=== PATIENT | female | born 1950 | race Hispanic/Latino ===

== ENCOUNTER 2017-07-17 10:25 | Outpatient (CLI) | payer MEDICARE, OTHER ==
--- NOTE | 2017-07-18 15:31 | Magnetic Resonance Report ---
BILATERAL BREAST MRI WITHOUT AND WITH CONTRAST: 07/17/17 10:25:00 CLINICAL: High risk for breast cancer and history of a right palpable breast lump at 12 o'clock. COMPARISON:02/10/16. TECHNIQUE: Axial 1.0-mm T1 without, axial high resolution 2.0-mm T2 and axial 1.0-mm dynamic Vibrant high-resolution postcontrast T1 fat saturation sequences on a 1.5 Roseanne magnet. The examination was performed with an 8 channel dedicated [place] breast coil. Post processing with CAD and subtraction was performed on an [employer] workstation. 15.0 cc of Multihance was injected without incident for the contrast portion of the exam. Consent was obtained prior to the administration of the contrast. FINDINGS: Right: Minimal background parenchymal enhancement. No mass or suspicious enhancement. No suspicious lymph nodes. Left: Minimal background parenchymal enhancement. No mass or suspicious enhancement. No suspicious lymph nodes. IMPRESSION: Normal study. BI-RADS 1 - - Negative
== END 2017-07-17 10:26 | disposition home or self-care (01) ==
LOC: SPVIMAG 10:25
PROVIDERS: ATTEND Surgery
DX: Z80.3 Family history of malignant neoplasm of breast (principal)
CPT/HCPCS: 0159T; A9577; C8908; 77059

== ENCOUNTER 2020-12-15 14:47 | Outpatient (CLI) | payer MEDICARE, BC ==
--- NOTE | 2020-12-15 17:41 | Mammography Report ---
DIGITAL DIAGNOSTIC MAMMOGRAM WITH CAD , 12/15/2020 CLINICAL INFORMATION / INDICATION: Right breast lump. TECHNIQUE: Digital bilateral mammographic imaging was performed. Spot compression views were obtaine d. This examination was interpreted with the benefit of Computer-aided Detection analysis. COMPARISON: 11/15/2017 through 11/25/2019. FINDINGS: Breast Density: There are scattered areas of fibroglandular density. No dominant mass, suspicious calcifications or architectural distortion in either breast. No abnormality is seen on spot compression views of the palpable abnormality in the right breast. IMPRESSION: No mammographic evidence of malignancy. Right breast ultrasound is recommended to evaluat e the patient's lump. Follow up recommendation: Ultrasound BI-RADS Category 0: Incomplete. Needs additional imaging evaluation and/or prior mammograms for kurt knight. A "normal" or negative report should not discourage follow up or biopsy of a clinically significant f inding. A written summary of these findings will be mailed to the patient. The patient will be entered into a mammography reporting system which will generate a reminder letter for the patient's next appointmen t at the appropriate interval. According to the [employer], yearly mammograms are recommended starting at age 40 and continuing as long as a woman is in good health. Breast MRI is recommended for women with an cas roximately 20-25% or greater lifetime risk of breast cancer, including women with a strong family his tory of breast or ovarian cancer and women who have been treated for Hodgkin's disease. Signer Name: Kali Sifuentes MD Signed: 12/15/2020 5:37 PM Workstation Name: [id number]
== END 2020-12-15 14:48 | disposition home or self-care (01) ==
LOC: SPVWC 14:47
PROVIDERS: ATTEND Surgery
DX: R92.8 Other abnormal and inconclusive findings on diagnostic imaging of breast (principal)
CPT/HCPCS: 77066

== ENCOUNTER 2021-01-05 13:37 | Outpatient (CLI) | payer MEDICARE ==
--- NOTE | 2021-01-05 14:39 | Ultrasound Report ---
ULTRASOUND BREAST RIGHT LIMITED, 01/05/2021 CLINICAL INFORMATION / INDICATION: Right breast lump. TECHNIQUE: Targeted ultrasound evaluation was performed of the area of interest. COMPARISON: Bilateral diagnostic mammogram 12/15/20. FINDINGS: There is no evidence of a mass, posterior shadowing, distortion or other abnormality. IMPRESSION: No sonographic evidence of malignancy. Follow up recommendation: Routine yearly BI-RADS Category 1: Negative. A normal or "negative" report should not preclude biopsy or follow-up of a clinically suspicious find ing. Signer Name: Kali Sifuentes MD Signed: 01/05/2021 2:34 PM Workstation Name: [id number]
== END 2021-01-05 13:38 | disposition home or self-care (01) ==
LOC: SPVWC 13:37
PROVIDERS: ATTEND Surgery
DX: R92.8 Other abnormal and inconclusive findings on diagnostic imaging of breast (principal)

== ENCOUNTER 2021-03-23 13:39 | Outpatient (CLI) | payer MEDICARE, BC ==
--- NOTE | 2021-03-23 15:17 | Magnetic Resonance Report ---
Bilateral breast MR without and with contrast. History: Patient at high risk for breast malignancy based upon family history. Patient reports a righ t breast 3:00 palpable finding. Comparison: 01/05/2021, 11/02/2018. Technique: Multiplanar multisequence MR images of the breast were obtained before and after the intra venous administration of 14 ml of Clariscan contrast agent. Post processing analysis and review was p erformed on a separate computer workstation. Findings: Breast composition is scattered fibroglandular. There is minimal background parenchymal enhancement w ithin both breasts. No discrete enhancing mass, dominant focus, or other abnormal enhancement is identified within either breast. Specifically, no suspicious findings are identified in the right breast at the 3:00 position (site of reported palpable finding). No abnormal axillary or internal mammary lymph nodes. Impression: No evidence of breast malignancy. No MRI finding to explain reported right breast 3:00 palpable findi ng. BIRADS 1: Negative. A normal MRI does not exclude the presence of some forms of breast malignancy as literature reports s uggest that some forms of ductal carcinoma in situ or lobular carcinoma, particularly, may not be det ected on MRI. The sensitivity and specificity of MRI for cancers under 5 mm may be reduced. MRI does not replace the recommendation for annual conventional mammographic evaluation and should be used as an adjunct to mammography and physical examination as necessary. Signer Name: Ben Mclaughlin MD Signed: 03/23/2021 3:12 PM Workstation Name: [id number]
== END 2021-03-23 13:40 | disposition home or self-care (01) ==
LOC: SPVIMAG 13:39
PROVIDERS: ATTEND Surgery
DX: R92.8 Other abnormal and inconclusive findings on diagnostic imaging of breast (principal); N64.9 Disorder of breast, unspecified; N60.01 Solitary cyst of right breast; Z80.3 Family history of malignant neoplasm of breast
CPT/HCPCS: A9575; C8908; 77049

== ENCOUNTER 2021-12-21 14:37 | Outpatient (CLI) | payer MEDICARE ==
--- NOTE | 2021-12-23 08:56 | Mammography Report ---
DIGITAL SCREENING MAMMOGRAM WITH CAD, 12/21/2021 CLINICAL INFORMATION / INDICATION: Routine screening mammography. TECHNIQUE: Digital bilateral 2D mammography was obtained in the craniocaudal and mediolateral obliqu e projections. This examination was interpreted with the benefit of Computer-Aided Detection analysis . COMPARISON: 12/15/2020, 11/25/2019, 11/23/2018 FINDINGS: Breast Density: There are scattered areas of fibroglandular density. No dominant mass, suspicious calcifications, or architectural distortion in either breast. There has been no significant interval change. IMPRESSION: No mammographic evidence of malignancy. Follow up recommendation: Routine yearly BI-RADS Category 1: NEGATIVE A "normal" or negative report should not discourage follow up or biopsy of a clinically significant f inding. A written summary of these findings will be mailed to the patient. The patient will be entered into a mammography reporting system which will generate a reminder letter for the patient's next appointmen t at the appropriate interval. The [employer] recommends yearly mammograms starting at age 40 and continuing as l christina as a woman is in good health. Breast MRI is recommended for women with an approximate 20-25% or greater lifetime risk of breast cancer, including women with a strong family history of breast or ova diann cancer or who have been treated for Hodgkin's disease. Signer Name: Tere Fleming MD Signed: 12/23/2021 8:52 AM Workstation Name: [id number]
== END 2021-12-21 14:38 | disposition home or self-care (01) ==
LOC: SPVWC 14:37
PROVIDERS: ATTEND Surgery
DX: Z12.31 Encounter for screening mammogram for malignant neoplasm of breast (principal)
CPT/HCPCS: 77067